=== PATIENT | female | born 1975 | race African-American/Black ===

== ENCOUNTER 2016-10-29 08:11 | Emergency (ER) | payer OTHER ==
[2016-10-29 08:16] VITALS: BP 134/100
[2016-10-29] MEDS ORDERED: oxyCOD/ACETAMIN 5 MG/325 MG TABLET PO STA (08:27)
[2016-10-29] MEDS ORDERED: CYCLOBENZAPRINE 10 MG TABLET PO STA (08:27)
[2016-10-29] MEDS ORDERED: DEXAMETHASONE 10 MG/ML VIAL PO STA (08:27)
[2016-10-29] MEDS ORDERED: LIDOCAINE PATCH 5% TOP STA (08:27)
--- NOTE | 2016-10-29 08:31 | ED Physician Documentation ---
History of Present Illness - Stated complaint Stated Complaint: LOWER BACK PX - Chief complaint Chief Complaint: Back Pain - Additonal information Additional information: hx from pt 41 y/o f denies preg hx LBP and sciatica to ER with low back pain rad to lateral right hip and ant R thigh and paresthesia to her feet no fever, no recent surgery or dental work, no IV IM meds/drugs no abd pain no saddle anesthesia so urinary urgency but no incontinence, denies dysuria started after some lifting Review of Systems Constitutional: denies: Fever Cardiac: denies: Chest pain / pressure Respiratory: denies: Dyspnea GI: denies: Abdominal Pain : denies: Incontinent, Now EGA (denies) Musculoskeletal: reports: Back pain, Extremity pain Neurologic: denies: Generalized weakness, Focal weakness, Numbness Endocrine: denies: Easy bruising / bleeding Immunocompromised: denies: Immunocompromised PD PAST MEDICAL HISTORY - Past Medical History Past Medical History: Yes Cardiovascular: Hypertension - Past Surgical History Past Surgical History: Yes /MERCHANDISER: Endometrial ablation - Present Medications Home Medications: Ambulatory Orders Medication Instructions Recorded Confirmed Carisoprodol [Soma] 350 mg PO Q8H PRN #15 tablet 10/29/16 Lidocaine Patch 5% [Lidoderm Patch] 1 each TOP DAILY PRN #10 patch 10/29/16 Nortriptyline [Pamelor] 25 mg PO HS 10/29/16 10/29/16 predniSONE [Deltasone] 20 mg PO [id number] #21 tab 10/29/16 - Allergies Allergies/Adverse Reactions: Allergies Allergy/AdvReac Type Severity Reaction Status Date / Time codeine Allergy Emesis Verified 10/29/16 08:16 - Social History Does the pt smoke?: No Smoking Status: Never smoker PD ED PE NORMAL - Vitals Vital signs reviewed: Yes - Neck Neck: Supple, no meningeal sign - Cardiac Cardiac: RRR - Respiratory Respiratory: No respiratory distress, Clear bilaterally - Abdomen Abdomen: Soft, Non tender, Other (no pulsatile mass) - Back Back: No spinal TTP (no focal bony TTP and no erythema warmth or focal swelling , diffuse TTP across lumbar region and limited ROM 2/2 pain) - Neuro Neuro: No motor deficit, No sensory deficit, Other (renae hip flex, knee ext, foot dorsi & plantar, great toe ext all 5/5, patellar DTR 1/4 renae, no ankle clonus, nl senation L1-S1, pt denies saddle anesthesia, + SLR on the right) Results - Vitals Vitals: Vital Signs - 24 hr 10/29/16 08:14 Temperature 37.0 C Heart Rate 88 Respiratory 14 Rate Blood Pressure 134/100 H O2 Saturation 100 Oxygen O2 Source Room air Departure - Departure Disposition: 01 Home, Self Care Clinical Impression: Back pain Qualifiers: Back pain location: low back pain Chronicity: acute Back pain laterality: bilateral Sciatica presence: with sciatica Sciatica laterality: sciatica of right side Qualified Code(s): M54.41 - Lumbago with sciatica, right side Sciatica Qualifiers: Laterality: right Qualified Code(s): M54.31 - Sciatica, right side Instructions: ED Sciatica, ED Neck Back Pain General Follow-Up: Brodie Valentino DO [Primary Care Provider] - Prescriptions: predniSONE [Deltasone] 20 mg PO [id number] #21 tab Cyclobenzaprine [Flexeril] 10 mg PO TID PRN #20 tablet PRN Reason: Spasms Lidocaine Patch 5% [Lidoderm Patch] 1 each TOP DAILY PRN #10 patch PRN Reason: Pain Comments: Please follow up with your PMD if not better Anbd pleaseI have precribed three medications Prednisone is a steroid which works by decreasing nerve inflammation and easing the sciatica Lidocaine patches can be applied directly to the area of the back that hurts the most for up to 12 hr a day And soma is a muscle relaxant You can also take tylenol for pain Avoid lifting and twisting but light activity and motion is OK - you don't need to be on bed rest Ice or heat is fine - whichever feels better And I wrote a note for work for three day to give your back time to recover Please follow up with your PMD if not better Return to the ER if worse And please have your PMD recheck your blood pressure - it was high today Forms: Activity restrictions
[2016-10-29] MEDS ORDERED: oxyCOD/ACETAMIN 5 MG/325 MG TABLET PO ONE (08:34)
[2016-10-29] MEDS ORDERED: CYCLOBENZAPRINE 10 MG TABLET PO ONE (08:34)
[2016-10-29] MEDS ORDERED: DEXAMETHASONE 10 MG/ML VIAL ONE (08:34)
[2016-10-29] MEDS ORDERED: CHERRY SYRUP 10 ML UDC PO ONE (08:35)
[2016-10-29] MEDS ORDERED: LIDOCAINE PATCH 5% TOP ONE (08:35)
== END 2016-10-29 08:52 | disposition home or self-care (01) ==
LOC: ED 08:11
DX: M54.41 Lumbago with sciatica, right side (principal); I10 Essential (primary) hypertension
CPT/HCPCS: 99283; A9270

== ENCOUNTER 2021-07-25 09:57 | Outpatient (CLI) | payer OTHER ==
[2021-07-25] MEDS ORDERED: GADOBUTROL 7.5 MMOL/7.5 ML VIAL ONE (10:24)
--- NOTE | 2021-07-25 11:33 | MRI Report ---
PROCEDURE: Lumbar Spine W/WO INDICATIONS: DORSALGIA CONTRAST: IV CONTRAST: Gadavist ml: 7.5 TECHNIQUE: Noncontrast sagittal T1 spin echo and T2 fast spin echo, sagittal STIR, axial T1 and T2 fast spin ech o through the lumbar spine. In cases with scoliosis, additional coronal T2 fast spin echo may be per formed. After the administration of contrast, sagittal and axial T1 spin echo with fat saturation th rough the lumbar spine. COMPARISON: None. FINDINGS: Image quality: Excellent. Alignment and curvature: There is normal bony alignment. Marrow: Marrow is of normal overall signal. No acute vertebral body compression fractures. No susp icious marrow enhancement. Spinal cord: Conus medullaris terminates at the level. Visualized spinal cord demonstrates normal signal, without suspicious enhancement. Paraspinous soft tissues: No paravertebral masses or abnormal enhancement. Simple cysts of the infe rior tip of the right lobe of the liver are noted. T12-L1: The disc is well-hydrated with no disc space narrowing. No foraminal or central canal stenos is. L1-L2: The disc is well-hydrated with no disc space narrowing. No foraminal or central canal steno sis. L2-L3: The disc is well-hydrated with no disc space narrowing. No foraminal or central canal steno sis. L3-L4: The disc is well-hydrated with no disc space narrowing. No foraminal or central canal stenos is. L4-L5: The disc is well-hydrated with no disc space narrowing. No foraminal or central canal stenos is. L5-S1: There is loss of signal of the disc consistent with desiccation. Modic type I changes of the inferior endplate of L5. There is a mild diffuse disc bulge causing mild bilateral foraminal stenosi s. The central canal is patent. S1-S2: Disc bearing with no foraminal or central canal stenosis. IMPRESSION: 1. Degenerative disc disease of L5-S1 with inflammatory endplate changes of the inferior endplate of L5 and with mild bilateral foraminal stenosis. 2. No significant central canal stenosis. Reviewed by: Neville Rod on 07/25/2021 11:32 AM PDT Approved by: Neville Rod on 07/25/2021 11:32 AM PDT Station ID: [id number]
[2021-07-25] MEDS ORDERED: GADOBUTROL 7.5 MMOL/7.5 ML VIAL IVP ONE (16:50)
== END 2021-07-25 09:58 | disposition home or self-care (01) ==
LOC: DI 09:57
PROVIDERS: ATTEND Family Medicine
DX: M51.37 Other intervertebral disc degeneration, lumbosacral region (principal); M48.07 Spinal stenosis, lumbosacral region
CPT/HCPCS: 72158; A9585